=== PATIENT | female | born 1990 | race Native Hawaiian/Other Pacific Islander ===

== ENCOUNTER 2017-09-20 17:29 | Emergency (ER) | payer SELFPAY ==
[2017-09-20 18:22] LABS: HCG Qualitative,Urine Positive (Negative)
[2017-09-20 18:26] LABS: Bacteria,Urine 2+ /HPF (Negative); Bilirubin,Urine NEG (Negative); Blood,Urine NEG (Negative); Color,Urine Yellow (Yellow); Mucus,Urine FEW /HPF; Protein,Urine <15 mg/dL mg/dL (Negative); Urobilinogen,Urine < 2.0 mg/dL (<2.0)
--- NOTE | 2017-09-20 20:22 | Emergency Department Report ---
ED General Adult HPI - General Chief complaint: Abdominal Pain Stated complaint: ABD PAIN ON LEFT SIDE Time Seen by Provider: 09/20/17 20:22 Source: patient Mode of arrival: Ambulatory Limitations: No Limitations - History of Present Illness Initial comments: Patient is a 26-year-old female no significant past medical history who presents with abdominal pain on for 1 month. She says it is all pain is on the left side of her belly is an achy type of pain as a 3 out of 10. It doesn't radiate nothing makes it better or worse. Patient also states that she's had some morning sickness and nausea in the mornings. Patient denies having any trauma to the area her last menstrual period was in June. - Related Data Previous Rx's Medication Instructions Recorded Last Taken Type Acetaminophen 1,000 mg PO Q6H PRN #30 tablet 09/20/17 Unknown Rx Nitrofurantoin Monohyd/M-Cryst 100 mg PO BID #14 capsule 09/20/17 Unknown Rx [Macrobid 100 mg Capsule] Pnv No.118/Iron Fumarate/FA 1 each PO QDAY #60 tab.chew 09/20/17 Unknown Rx [ 19 Chewable] Allergies Allergy/AdvReac Type Severity Reaction Status Date / Time No Known Allergies Allergy Unverified 09/20/17 17:42 ED Review of Systems ROS: Stated complaint: ABD PAIN ON LEFT SIDE Other details as noted in HPI Constitutional: denies: chills, fever Eyes: denies: eye pain, eye discharge, vision change ENT: denies: ear pain, throat pain Respiratory: denies: cough, shortness of breath, wheezing Cardiovascular: denies: chest pain, palpitations Endocrine: no symptoms reported Gastrointestinal: abdominal pain. denies: nausea, diarrhea Genitourinary: denies: urgency, dysuria, discharge Musculoskeletal: denies: back pain, joint swelling, arthralgia Skin: denies: rash, lesions Neurological: denies: headache, weakness, paresthesias Psychiatric: denies: anxiety, depression Hematological/Lymphatic: denies: easy bleeding, easy bruising ED Past Medical Hx - Past Medical History Previous Medical History?: Yes Additional medical history: Vaginal delivery x 2 - Surgical History Past Surgical History?: No - Family History Family history: no significant - Social History Smoking Status: Never Smoker Substance Use Type: None - Medications Home Medications: Home Medications Medication Instructions Recorded Confirmed Last Taken Type Acetaminophen 1,000 mg PO Q6H PRN #30 tablet 09/20/17 Unknown Rx Nitrofurantoin Monohyd/M-Cryst 100 mg PO BID #14 capsule 09/20/17 Unknown Rx [Macrobid 100 mg Capsule] Pnv No.118/Iron Fumarate/FA 1 each PO QDAY #60 tab.chew 09/20/17 Unknown Rx [ 19 Chewable] ED Physical Exam - General Limitations: No Limitations General appearance: alert, in no apparent distress - Head Head exam: Present: atraumatic, normocephalic - Eye Eye exam: Present: normal appearance - ENT ENT exam: Present: mucous membranes moist - Neck Neck exam: Present: normal inspection - Respiratory Respiratory exam: Present: normal lung sounds bilaterally. Absent: respiratory distress - Cardiovascular Cardiovascular Exam: Present: regular rate, normal rhythm. Absent: systolic murmur, diastolic murmur, rubs, gallop - GI/Abdominal GI/Abdominal exam: Present: soft, normal bowel sounds - Extremities Exam Extremities exam: Present: normal inspection - Back Exam Back exam: Present: normal inspection - Neurological Exam Neurological exam: Present: alert, oriented X3 - Psychiatric Psychiatric exam: Present: normal affect, normal mood - Skin Skin exam: Present: warm, dry, intact, normal color. Absent: rash ED Course Vital Signs 09/20/17 17:42 Temperature 97.7 F Pulse Rate 99 H Respiratory 18 Rate Blood Pressure 117/63 O2 Sat by Pulse 99 Oximetry - Reevaluation(s) Reevaluation #1: 09/20/17 20:41 Pt states that she will f/u with her obgyn appointment on September 27. ED Medical Decision Making - Lab Data Lab Results 09/20/17 Range/Units 18:04 Urine Color Yellow (Yellow) Urine Turbidity Clear (Clear) Urine pH 6.0 (5.0-7.0) Ur Specific Marceline 1.016 (1.003-1.030) Urine Protein <15 mg/dl (Negative) mg/dL Urine Glucose (UA) Neg (Negative) mg/dL Urine Ketones Neg (Negative) mg/dL Urine Blood Neg (Negative) Urine Nitrite Neg (Negative) Ur Reducing Substances Not Reportable Urine Bilirubin Neg (Negative) Urine Ictotest Not Reportable Urine Urobilinogen < 2.0 (<2.0) mg/dL Ur Leukocyte Esterase Lg (Negative) Urine WBC (Auto) 6.0 (0.0-6.0) /HPF Urine RBC (Auto) 3.0 (0.0-6.0) /HPF U Epithel Cells (Auto) 17.0 H (0-13.0) /HPF Urine Bacteria (Auto) 2+ (Negative) /HPF Urine Mucus Few /HPF Urine Yeast (Budding) Few /HPF Urine HCG, Qual Positive A (Negative) - Medical Decision Making Cdx: Abdominal pain 2/2 pregnacy ddx: UTI, ectopic I will get urinalysis and ED point of care ultrasound. ED point of care ultrasound shows: Intrauterine with gestation around 8-9 weeks. I will send patient home with a prescription of macrobid. Discussed findings with patient and patient agrees with plan additional verbal discharge instructions were given. Critical care attestation.: If time is entered above; I have spent that time in minutes in the direct care of this critically ill patient, excluding procedure time. ED Disposition Clinical Impression: Abdominal pain affecting UTI (urinary tract infection) Qualifiers: Urinary tract infection type: acute cystitis Hematuria presence: without hematuria Qualified Code(s): N30.00 - Acute cystitis without hematuria Qualifiers: Weeks of gestation: 8 weeks Qualified Code(s): Z3A.08 - 8 weeks gestation of Disposition: DC-01 TO HOME OR SELFCARE Is pt being admited?: No Does the pt Need Aspirin: No Condition: Stable Instructions: Abdominal Pain (ED), (ED), Morning Sickness (ED) Prescriptions: Acetaminophen 1,000 mg PO Q6H PRN #30 tablet PRN Reason: Pain, Moderate (4-6) Nitrofurantoin Monohyd/M-Cryst [Macrobid 100 mg Capsule] 100 mg PO BID #14 capsule Pnv No.118/Iron Fumarate/FA [ 19 Chewable] 1 each PO QDAY #60 tab.chew Referrals: NOLVIA SANCHEZ MD [Staff Physician] - 3-5 Days
[2017-09-20] MEDS ORDERED: TYLENOL PO ONE (20:30)
[2017-09-20 20:49] VITALS: BP 136/72
== END 2017-09-20 20:47 | disposition home or self-care (01) ==
LOC: ED 17:29
DX: O23.41 Unspecified infection of urinary tract in pregnancy, first trimester (principal); Z3A.08 8 weeks gestation of pregnancy
CPT/HCPCS: 81001; 81025; 99283

== ENCOUNTER 2018-03-22 15:26 | Outpatient (CLI) | payer MEDICAID ==
--- NOTE | 2018-03-22 20:59 | Ultrasound Report ---
FINAL REPORT EXAM: US OB LIMITED HISTORY: Fell at laundry mat TECHNIQUE: Real-time sonography was performed of the gravid uterus to evaluate the placenta and imag es are submitted for interpretation. PRIORS: None. FINDINGS: There is a normal-appearing fetus in the uterus in a cephalic presentation. The placenta is posterior and the os is clear. The placenta appears normal without evidence of abrupt ion. The heart is beating at a rate of 143 beats per minute. IMPRESSION: Normal placenta without evidence of placental abruption
--- NOTE | 2018-03-22 21:02 | Ultrasound Report ---
FINAL REPORT EXAM: US OB BPP WO NON-STRESS HISTORY: well being TECHNIQUE: Real-time sonography was performed of the gravid uterus for biophysical profile and image s are submitted for interpretation. PRIORS: None. FINDINGS: Biophysical profile: Breathin Movement: 2 Tone: 2 Fluid volume: 2 IMPRESSION: Normal biophysical profile, 10/31
[2018-03-22 22:23] VITALS: BP 95/57
--- NOTE | 2018-03-23 03:55 | Event Note ---
Date: 03/22/18 Triage Note 03/22/18 27 year old female presents to L&D triage at 36 weeks, 5 days gestation after falling at laundry mat. Patient states she slipped and fell on her left side; states she did not hit her belly or her head. Patient denies pain and states she can move both arms and legs well. She denies bruising or lacerations. She denies contractions, abdominal pain, back pain, vaginal bleeding, or leaking of fluid. Patient reports she feels active movement. Patient is well appearing, alert, oriented, NAD. Abdomen soft, nontender. No regular contractions. No vaginal bleeding or leaking of fluid noted. Category 1 heart rate tracing. BPP 8/8. No signs of placental abruption noted on US. Patient was monitored for 6 hours and no signs of active labor noted. No decels noted. Discharged patient home with labor precautions and instructions to perform daily movement counting. Follow up as scheduled next week with OB-BUSINESS INTEGRATION ANALYST.
== END 2018-03-22 23:34 | disposition home or self-care (01) ==
LOC: TRG 15:26
PROVIDERS: ATTEND Obstetrics & Gynecology
DX: O47.03 False labor before 37 completed weeks of gestation, third trimester (principal); Z3A.36 36 weeks gestation of pregnancy
CPT/HCPCS: 59025; 76815; 76819

== ENCOUNTER 2018-04-14 11:16 | Inpatient (IN) | payer MEDICAID ==
[2018-04-14] MEDS ORDERED: XYLOCAINE 2% INFILTRATI ONE (12:09)
[2018-04-14] MEDS ORDERED: BRETHINE SUB-Q PRN (12:09)
--- NOTE | 2018-04-14 12:34 | History and Physical Report ---
History of Present Illness Date of examination: 04/14/18 Date of admission: 04/14/2018 Chief complaint: Leaking of water from vagina since 08:00 this morning. History of present illness: 27 year old presents to L&D with complaint of leaking of water from vagina since 08:00 this AM. Patient states fluid is clear. Patient reports active movement. She denies vaginal bleeding. Patient has received care from [facility] OB-DIGITAL MEDIA REPRESENTATIVE [facility] and records are available. LMP 07/09/2017. EDC 04/15/2018. significant for the following: UTI (treated with Augmentin), vitamin D insufficiency (supplemented with Vitamin D). labs are as follows: O+, antibody screen negative, pap negative, rubella immune, RPR nonreactive, hepatitis B surface antigen negative, HIV negative, varicella immune, HSV 2 negative, hemoglobin electrophoresis AA, GC negative, CT negative, panorama low risk, GBS negative. Past History Past Medical History: no pertinent history Past Surgical History: no surgical history DIGITAL MEDIA REPRESENTATIVE History: denies: abnormal PAP smear, chlamydia, fibroids, gonorrhea, hepatitis B, hepatitis C, herpes, HIV, syphilis, trichomonas Family/Genetic History: none Social history: , lives with family, full code. denies: smoking, alcohol abuse, prescription drug abuse, IV drug use - Obstetrical History Expected Date of Delivery: 04/15/18 Actual Gestation: 39 Week(s) 6 Day(s) : 3 Para: 2 Hx # Term Pregnancies: 3 Number of Pregnancies: 0 Spontaneous Abortions: 0 Induced : 0 Number of Living Children: 2 Medications and Allergies Allergies Allergy/AdvReac Type Severity Reaction Status Date / Time No Known Allergies Allergy Unverified 09/20/17 17:42 Home Medications Medication Instructions Recorded Confirmed Last Taken Type Pnv No.118/Iron Fumarate/FA 1 each PO QDAY #60 tab.chew 09/20/17 04/14/18 1 Week Ago Rx [ 19 Chewable] ~04/07/18 Active Meds: Active Medications Ephedrine Sulfate (Ephedrine Sulfate) 10 mg IV Q2M PRN PRN Reason: Hypotension Fentanyl (Sublimaze) 100 mcg IV Q2H PRN PRN Reason: Labor Pain Lactated Ringer's (Lactated Ringers) 1,000 mls @ 125 mls/hr IV DIRECT GIUSEPPE Oxytocin/Sodium Chloride (Pitocin/Ns 20 Unit/1000ml Drip) 20 units in 1,000 mls @ 125 mls/hr IV DIRECT GIUSEPPE Oxytocin/Sodium Chloride (Pitocin/Ns 30 Unit/500ml) 30 units in 500 mls @ 0 mls/hr IV TITR GIUSEPPE; Protocol Lidocaine (Xylocaine 2%) 20 ml INFILTRATI ONCE ONE Stop: 04/14/18 12:10 Terbutaline Sulfate (Brethine) 0.25 mg SUB-Q ONCE PRN PRN Reason: Hyperstimulation/Hypertonicity Review of Systems All systems: negative (none except leaking of fluid from vagina and contractions) - Vital Signs Vital signs: Vital Signs Temp Resp 98.0 F 16 04/14/18 11:30 04/14/18 11:30 Temp Pulse Resp BP Pulse Ox 98.0 F 93 H 16 106/67 97 04/14/18 11:30 04/14/18 12:26 04/14/18 11:30 04/14/18 11:31 04/14/18 12:26 - Physical Exam Cardiovascular: Regular rate, Normal S1, Normal S2 Lungs: Positive: Clear to auscultation Abdomen: Positive: normal appearance, soft Genitourinary (Female): Positive: normal external genitalia, normal perenium. Negative: perineal/vulvar lesions Vagina: Positive: other (clear fluid, + nitrazine, + amniotic fluid seen leaking from vagina) Uterus: Positive: enlarged (size=dates) Anus/Rectum: Positive: normal perianal skin Extremities: Positive: normal. Negative: tenderness, edema - Obstetrical FHR: category 1 Uterine Contraction Monitor Mode: External Cervical Dilatation: 2.5 (SVE done by RN in triage upon patient's arrival) Cervical Effacement Percentage: 60 station: -3 Uterine Contraction Pattern: Regular Uterine Contraction Intensity: Mild Results All other labs normal. Assessment and Plan A: at 39 weeks, 6 days gestation. Spontaneous rupture of membranes. Labor. GBS negative. P: Admit. Continuous EFM. Epidural if desired. Pitocin augmentation of labor. Discussed with patient risks and benefits of Pitocin augmentation of labor. Patient consented to Pitocin augmentation of labor.
[2018-04-14] MEDS ORDERED: PITOCin/NS 30 UNIT/500ML 30 UNITS/500 ML BAG IV SCH (13:00)
[2018-04-14] MEDS ORDERED: PITOCin/NS 20 UNIT/1000ML DRIP 20 UNITS/1,000 ML BAG IV SCH (13:00)
[2018-04-14] MEDS: LACTATED RINGERS 1,000 ML IV SCH ×4 (15:00→22:09)
[2018-04-14 15:19] LABS: Hematocrit 41.4 % (30.3-42.9); Hemoglobin 13.9 gm/dl (10.1-14.3); Mean Corpuscular HGB Conc 34 % (30-34); Mean Corpuscular Volume 95 fl (79-97); Platelet Count 226 K/mm3 (140-440); Red Blood Count 4.34 M/mm3 (3.65-5.03)
--- NOTE | 2018-04-14 16:34 | Event Note ---
Date: 04/14/18 SVE /-2. Category 1 heart rate tracing. Patient requests IV pain medication.
[2018-04-14] MEDS: SUBLIMAZE IV PRN ×3 (16:40→21:10)
--- NOTE | 2018-04-14 22:13 | Anesthesia Consultation ---
Anesthesia Consult and Med Hx Date of service: 04/14/18 - Airway Anesthetic Teeth Evaluation: Good ROM Head & Neck: Adequate Mental/Hyoid Distance: Adequate Mallampati Class: Class II Intubation Access Assessment: Good - Pulmonary Exam CTA: Yes - Pre-Operative Health Status ASA Pre-Surgery Classification: ASA2 Proposed Anesthetic Plan: Epidural - Pulmonary Hx Smoking: No Hx Asthma: No Hx Respiratory Symptoms: No SOB: No COPD: No Hx Pneumonia: No Hx Sleep Apnea: No - Cardiovascular System Hx Hypertension: No Hx Coronary Artery Disease: No Hx Heart Attack/AMI: No Hx Angina: No Hx Percutaneous Transluminal Coronary Angioplasty (PTCA): No Hx Cardia Arrhythmia: No Hx Pacemaker: No Hx Internal Defibrillator: No Hx Valvular Heart Disease: No Hx Heart Murmur: No Hx Peripheral Vascular Disease: No - Central Nervous System Hx Neuromuscular Disorder: No Hx Seizures: No CVA: No Hx Back Pain: No Hx Psychiatric Problems: No - Gastrointestinal Hx Ulcer: No Hx Gastroesophageal Reflux Disease: No - Endocrine Hx Renal Disease: No Hx End Stage Renal Disease: No Hx Cirrhosis: No Hx Liver Disease: No Hx Insulin Dependent Diabetes: No Hx Non-Insulin Dependent Diabetes: No Hx Thyroid Disease: No Hx Hypothyroidism: No Hx Hyperthyroidism: No - Hematic Hx Anemia: No Hx Sickle Cell Disease: No - Other Systems Hx Alcohol Use: No Hx Substance Use: No Hx Cancer: No Hx Obesity: No
[2018-04-14] MEDS ORDERED: ZOFRAN IV PRN (22:16)
[2018-04-14] MEDS ORDERED: NUBAIN IV PRN (22:16)
[2018-04-14] MEDS ORDERED: BENADRYL IV PRN (22:16)
[2018-04-14] MEDS ORDERED: NARCAN 2 MG/2 ML IV PRN (22:16)
[2018-04-14] MEDS ORDERED: fentaNYL-BUPIV 2 MCG/ML-0.125% 200 MCG/100 ML BAG EPIDURAL SCH (22:24)
[2018-04-15] MEDS ORDERED: LANSINOH TP PRN
[2018-04-15] MEDS ORDERED: BENADRYL PO PRN
[2018-04-15] MEDS ORDERED: MILK OF MAGNESIA PO PRN
[2018-04-15] MEDS ORDERED: NORCO 5/325 PO PRN
[2018-04-15] MEDS ORDERED: SODIUM CHLORIDE FLUSH SYRINGE 10 ML IV NR
[2018-04-15] MEDS ORDERED: TUCKS PAD TP PRN
--- NOTE | 2018-04-15 00:09 | Procedure Note ---
OB Delivery Note - Delivery Date of Delivery: 04/15/18 Surgeon: FISH LICONA Estimated blood loss: 200cc - Vaginal Delivery presentation: vertex Delivery position: OA Delivery augmentation: pitocin Delivery monitor: external FHT, external uterine Route of delivery: Delivery placenta: spontaneous Delivery cord: 3 umbilical vessels, other (short cord) Episiotomy: none Delivery laceration: none Anesthesia: epidural Delivery comments: Spontaneous vaginal delivery of liveborn female infant weighing 6 lb. 12 oz. at 23:40 over intact perineum with apgars of 8/9. Baby placed immediately on mother's abdomen after delivery; spontaneous cry and respirations. Baby bulb suctioned, dried, and stimulated. Short cord noted. 3 vessel cord double clamped and cut after cessation of pulsation. Spontaneous delivery of intact placenta and membranes by solo mechanism at 23:48. EBL 200 ml. Pitocin to IV fluids after delivery of placenta. Fundus firm and midline. Vaginal sweep negative. No lacerations noted. Sponge count correct. Mother and baby stable in birthing room.
[2018-04-15] MEDS: IBUPROFEN PO SCH ×3 (01:44→17:40)
[2018-04-15] MEDS: COLACE PO SCH ×2 (10:05→22:24)
--- NOTE | 2018-04-15 12:01 | Progress Note ---
Assessment and Plan - Patient Problems (1) Status post normal vaginal delivery Current Visit: Yes Status: Acute Plan to address problem: PPD 1 - stable Continue routine orders Discharge to home 04/16/18 Follow-up at [facility] INFORMATION SYSTEMS MANAGER in 6 weeks for exam Subjective - Subjective Date of service: 04/15/18 Principal diagnosis: PPD #1; s/p Patient reports: appetite normal, voiding normally, pain well controlled, ambulating normally, no dizzy ambulation : doing well, other (breast and bottle feeding) Objective - Vital Signs Latest vital signs: Vital Signs Temp Pulse Resp BP BP Pulse Ox 04/15/18 07:46 97.8 F 70 18 99/56 04/15/18 05:26 98.0 F 78 18 91/55 98 04/15/18 01:30 98.1 F 83 18 90/51 97 04/15/18 00:37 91 H 111/59 04/15/18 00:07 115 H 107/56 04/14/18 23:39 106 H 82 L 04/14/18 23:37 136 H 133/81 04/14/18 23:34 117 H 100 04/14/18 23:33 40 L 88 04/14/18 23:28 100 H 100 04/14/18 23:23 89 100 04/14/18 23:18 96 H 100 04/14/18 23:13 85 100 04/14/18 23:06 100 H 100 04/14/18 23:01 108 H 0 L 04/14/18 23:00 114 H 0 L 04/14/18 22:55 92 H 100 04/14/18 22:50 91 H 100 04/14/18 22:45 84 100 04/14/18 22:41 90 100 04/14/18 22:35 76 100 04/14/18 22:30 86 100 04/14/18 22:26 81 102/58 04/14/18 22:25 87 98 04/14/18 22:24 94 H 96/55 04/14/18 22:22 90 105/56 04/14/18 22:20 90 98 04/14/18 22:15 97 H 97 04/14/18 22:13 93 H 101/51 04/14/18 22:10 102 H 98 04/14/18 22:08 107 H 96/52 04/14/18 22:06 109 H 110/56 04/14/18 22:05 113 H 97 04/14/18 22:04 109 H 117/56 04/14/18 22:02 102 H 119/63 04/14/18 22:00 108 H 114/62 99 04/14/18 21:58 94 H 119/58 04/14/18 21:56 117 H 127/64 04/14/18 21:55 103 H 98 04/14/18 21:54 109 H 124/59 04/14/18 21:52 114 H 115/65 04/14/18 21:50 112 H 97 04/14/18 21:40 18 04/14/18 21:28 98 H 120/69 04/14/18 21:10 20 04/14/18 20:28 97.5 F L 102 H 20 95/55 04/14/18 20:27 102 H 94/55 04/14/18 19:06 20 04/14/18 17:59 98.2 F 18 04/14/18 15:18 98 H 109/69 04/14/18 15:13 98.3 F 18 04/14/18 14:46 95 H 99 04/14/18 14:41 90 99 04/14/18 14:36 95 H 99 04/14/18 14:31 87 99 04/14/18 14:26 83 98 04/14/18 14:21 84 99 04/14/18 14:16 81 99 04/14/18 14:11 87 98 04/14/18 14:06 97 H 99 04/14/18 14:01 87 99 04/14/18 13:56 98 H 97 04/14/18 13:51 86 99 04/14/18 13:46 95 H 98 04/14/18 13:41 95 H 98 04/14/18 13:36 94 H 98 04/14/18 13:31 93 H 98 04/14/18 13:26 99 H 98 04/14/18 13:21 81 97 04/14/18 13:16 89 97 04/14/18 13:11 89 97 04/14/18 13:06 94 H 98 04/14/18 13:01 98 H 98 04/14/18 12:56 91 H 97 04/14/18 12:51 92 H 97 04/14/18 12:46 97 H 97 04/14/18 12:41 93 H 97 04/14/18 12:36 94 H 96 04/14/18 12:31 86 98 04/14/18 12:26 93 H 97 04/14/18 12:21 99 H 97 04/14/18 12:16 96 H 98 04/14/18 12:11 99 H 99 04/14/18 12:06 102 H 97 04/14/18 12:01 101 H 97 Intake and Output 04/14/18 04/15/18 04/15/18 23:59 07:59 15:59 Intake Total 894.549 720 120 Output Total 900 Balance 894.549 -180 120 Intake: IV 894.549 Lactated Ringers 1,000 ml 893.749 @ 125 mls/hr IV DIRECT GIUSEPPE Rx#:[id number] PITOCin/NS 30 UNIT/500ML 0.8 30 units In 500 ml @ Per Protocol IV TITR GIUSEPPE Rx#: [id number] Oral 360 120 Intake, Free Water 360 Output: Urine 900 Void 900 Other: Total, Intake Amount 360 120 Total, Output Amount 900 Estimated Blood Loss 200 - Exam Cardiovascular: Present: Regular rate Lungs: Present: Clear to auscultation, Normal air movement Abdomen: Present: normal appearance Vulva: both: normal Uterus: Present: normal, firm, fundal height at umbilicus Extremities: Present: normal Comments: scant lochia
[2018-04-15 12:02] LABS: Hemoglobin 11.6 gm/dl (10.1-14.3)
--- NOTE | 2018-04-15 12:09 | Discharge Summary ---
Providers - Providers Date of Admission: 04/14/18 15:06 Date of discharge: 04/16/18 Attending physician: MARLYN SONI MD Primary care physician: MARLYN SONI MD Hospitalization Reason for admission: active labor, IUP at term Delivery: Episiotomy: none Laceration: none Other procedures: none complications: none Discharge diagnosis: IUP at term delivered [place] baby: female Hospital course: Uncomplicated Condition at discharge: Stable Disposition: AR-01 TO HOME OR SELFCARE - Discharge Diagnoses (1) Status post normal vaginal delivery Status: Acute Plan - Provider Discharge Summary Activity: routine, no sex for 6 weeks, no heavy lifting 4 weeks, no strenuous exercise Diet: routine Additional instructions: [] Smoking cessation referral if applicable(refer to patient education folder for contact #) [] Refer to [facility] Booklet Call your doctor immediately for: * Fever > 100.5 * Heavy vaginal bleeding ( >1 pad per hour) * Severe persistent headache * Shortness of breath * Reddened, hot, painful area to leg or breast * Drainage or odor from incision. * Keep incision clean and dry at all times and follow doctor's instructions regarding bathing/showering - Follow up plan Follow up: MARLYN SONI MD [Primary Care Provider] - 6 Weeks (Follow-up at [facility] OCEANOLOGY TEACHER in 6 weeks for exam and ParaGard IUD insertion)
[2018-04-15 12:29] LABS: Hematocrit 33.3 % (30.3-42.9)
[2018-04-16] MEDS: IBUPROFEN PO SCH ×2 (00:23→06:34)
[2018-04-16] MEDS ORDERED: BOOSTRIX IM ONE (06:30)
[2018-04-16 10:42] VITALS: BP 106/48
== END 2018-04-16 11:00 | disposition home or self-care (01) | DRG 775 ==
LOC: TRG 11:16 → LD 15:06 → OB 04-15 01:05
PROVIDERS: ADMIT Obstetrics & Gynecology; ATTEND Obstetrics & Gynecology
PROC: 10E0XZZ Delivery of Products of Conception, External Approach (ICD-10-PCS; principal; 2018-04-15)
PROC: 3E0R3BZ Introduction of Anesthetic Agent into Spinal Canal, Percutaneous Approach (ICD-10-PCS; 2018-04-15)
PROC: 00HU33Z Insertion of Infusion Device into Spinal Canal, Percutaneous Approach (ICD-10-PCS; 2018-04-15)
DX: O80 Encounter for full-term uncomplicated delivery (principal); Z3A.39 39 weeks gestation of pregnancy; Z37.0 Single live birth
CPT/HCPCS: 36415; 85014; 85018; 85027; 86592; 86850; 86900; 86901; 90471; 90715; G0378; J2590; J3010; J7120

== ENCOUNTER 2019-10-22 16:49 | Emergency (ER) | payer SELFPAY ==
--- NOTE | 2019-10-22 17:36 | Event Note ---
ED Screening Note ED Screening Note: 5 days ago chills, diarrhea, cough, headache no fever no vomiting no SOB PMHx none no allergies to meds no sick contacts no recent travel LNMP: currently O2 sat is 95 on RA HR is 128bpm This initial assessment/diagnostic orders/clinical plan/treatment(s) is/are subject to change based on patients health status, clinical progression and re- assessment by fellow clinical providers in the ED. Further treatment and workup at subsequent clinical providers discretion. Patient/guardian urged not to elope from the ED as their condition may be serious if not clinically assessed and managed. Initial orders include: labs, CXR
[2019-10-22 18:03] LABS: Basophils % (Auto) 0.2 % (0.0-1.8); Eosinophils % (Auto) 0.2 % (0.0-4.3); Hemoglobin 12.5 gm/dl (10.1-14.3); Lymphocytes # (Auto) 1.1 K/mm3 (1.2-5.4); Lymphocytes % (Auto) 18.6 % (13.4-35.0); Mean Corpuscular HGB Conc 33 % (30-34); Mean Corpuscular Volume 88 fl (79-97); Monocytes # (Auto) 0.2 K/mm3 (0.0-0.8); Monocytes % (Auto) 3.4 % (0.0-7.3); Platelet Count 201 K/mm3 (140-440); Red Blood Count 4.32 M/mm3 (3.65-5.03); Red Cell Distribution Width 14.9 % (13.2-15.2)
[2019-10-22 18:17] LABS: Alanine Aminotransferase 41 units/L (7-56); Albumin 3.8 g/dL (3.9-5); Blood Urea Nitrogen 3 mg/dL (7-17); Calcium 8.6 mg/dL (8.4-10.2); Hemolysis Index 1
[2019-10-22 18:33] LABS: BUN/Creatinine Ratio 6
--- NOTE | 2019-10-22 19:47 | XRay Report ---
CHEST 2 VIEWS INDICATION: Off. Fever.. COMPARISON: None. FINDINGS: Support devices: None. Heart: Within normal limits. Lungs/Pleura: Lung volumes are diminished. Patchy opacity at the mid/lower zones left greater than ri ght. No significant pleural effusion. IMPRESSION: Bibasilar pneumonia. Signer Name: Dwight Garibay MD Signed: 10/22/2019 7:43 PM Workstation Name: [id number]
[2019-10-22] MEDS ORDERED: cefTRIAXone/NS 2 GM/100 ML 2 GM/100 ML BAG IV ONE (19:54)
[2019-10-22] MEDS ORDERED: SODIUM CHLORIDE 0.9% 1000 ML 1,000 ML IV ONE (19:54)
[2019-10-22] MEDS ORDERED: traMADol 50 MG TAB PO ONE (19:54)
[2019-10-22] MEDS ORDERED: AZITHROMYCIN 250 MG TAB PO ONE (19:54)
[2019-10-22] MEDS ORDERED: dexAMETHasone 4 MG/ML VIAL IV ONE (21:12)
[2019-10-22 22:12] VITALS: BP 121/67
--- NOTE | 2019-10-22 22:18 | Emergency Department Report ---
- General Chief Complaint: Upper Respiratory Infection Stated Complaint: CHILLS/HEADACHE/DIARRHEA/ Time Seen by Provider: 10/22/19 17:34 Source: patient Mode of arrival: Ambulatory Limitations: No Limitations - History of Present Illness Initial Comments: pt is a 28 yo female who presents to the ED with c/o URI symptoms that began 5 days ago she has associated chills, diarrhea, cough, headache no fever no vomiting no SOB no CP no abd pain PMHx none no allergies to meds no sick contacts no recent travel LNMP: currently on cycle - Related Data Previous Rx's Medication Instructions Recorded Last Taken Type Pnv No.118/Iron Fumarate/FA 1 each PO QDAY #60 tab.chew 09/20/17 1 Week Ago Rx [ 19 Chewable] ~04/07/18 Albuterol Sulfate [Proventil Hfa] 6.7 gm IH TID PRN #1 hfa.aer.ad 10/22/19 Unknown Rx Azithromycin [Zithromax TAB] 250 mg PO QDAY 4 Days #4 tablet 10/22/19 Unknown Rx Allergies Allergy/AdvReac Type Severity Reaction Status Date / Time No Known Allergies Allergy Unverified 09/20/17 17:42 ED Review of Systems ROS: Stated complaint: CHILLS/HEADACHE/DIARRHEA/ Other details as noted in HPI Comment: All other systems reviewed and negative ED Past Medical Hx - Past Medical History Previous Medical History?: No Hx Hypertension: No Hx Heart Attack/AMI: No Hx Congestive Heart Failure: No Hx Diabetes: No Hx Deep Vein Thrombosis: No Hx Liver Disease: No Hx Renal Disease: No Hx Sickle Cell Disease: No Hx Seizures: No Hx Asthma: No Hx COPD: No Hx HIV: No Additional medical history: Vaginal delivery x 2 - Surgical History Past Surgical History?: No Hx Pacemaker: No Hx Internal Defibrillator: No - Social History Smoking Status: Never Smoker Substance Use Type: None - Medications Home Medications: Home Medications Medication Instructions Recorded Confirmed Last Taken Type Pnv No.118/Iron Fumarate/FA 1 each PO QDAY #60 tab.chew 09/20/17 04/14/18 1 Week Ago Rx [ 19 Chewable] ~04/07/18 Albuterol Sulfate [Proventil Hfa] 6.7 gm IH TID PRN #1 hfa.aer.ad 10/22/19 Unknown Rx Azithromycin [Zithromax TAB] 250 mg PO QDAY 4 Days #4 tablet 10/22/19 Unknown Rx ED Physical Exam - General Limitations: No Limitations General appearance: alert, in no apparent distress - Head Head exam: Present: atraumatic, normocephalic - Eye Eye exam: Present: normal appearance - ENT ENT exam: Present: mucous membranes moist - Respiratory Respiratory exam: Present: normal lung sounds bilaterally. Absent: respiratory distress, wheezes, rales, rhonchi, stridor, chest wall tenderness, accessory muscle use, decreased breath sounds, prolonged expiratory - Cardiovascular Cardiovascular Exam: Present: regular rate, normal rhythm, normal heart sounds. Absent: systolic murmur, diastolic murmur, rubs, gallop - Neurological Exam Neurological exam: Present: alert, oriented X3 - Psychiatric Psychiatric exam: Present: normal affect, normal mood - Skin Skin exam: Present: warm, dry, intact ED Course Vital Signs 10/22/19 10/22/19 10/22/19 17:34 20:15 20:31 Temperature 99.6 F Pulse Rate 126 H 130 H 127 H Respiratory 18 22 22 Rate Blood Pressure 116/74 106/57 106/67 Blood Pressure [Right] O2 Sat by Pulse 94 95 96 Oximetry 10/22/19 10/22/19 10/22/19 20:45 21:01 21:15 Temperature Pulse Rate 121 H 122 H 129 H Respiratory 17 26 H 25 H Rate Blood Pressure 88/49 88/49 88/49 Blood Pressure [Right] O2 Sat by Pulse 97 98 95 Oximetry 10/22/19 10/22/19 10/22/19 21:43 21:45 22:00 Temperature Pulse Rate 118 H Respiratory 13 30 H Rate Blood Pressure 88/49 88/49 104/66 Blood Pressure [Right] O2 Sat by Pulse 93 95 96 Oximetry 10/22/19 22:11 Temperature 99.5 F Pulse Rate 117 H Respiratory 18 Rate Blood Pressure Blood Pressure 121/67 [Right] O2 Sat by Pulse 97 Oximetry ED Medical Decision Making - Lab Data Result diagrams: 10/22/19 17:43 10/22/19 17:43 Lab Results 10/22/19 10/22/19 10/22/19 Range/Units 17:43 17:43 17:43 WBC 5.7 (4.5-11.0) K/mm3 RBC 4.32 (3.65-5.03) M/mm3 Hgb 12.5 (10.1-14.3) gm/dl Hct 38.0 (30.3-42.9) % MCV 88 (79-97) fl MCH 29 (28-32) pg MCHC 33 (30-34) % RDW 14.9 (13.2-15.2) % Plt Count 201 (140-440) K/mm3 Lymph % (Auto) 18.6 (13.4-35.0) % [place]ardo % (Auto) 3.4 (0.0-7.3) % Eos % (Auto) 0.2 (0.0-4.3) % Baso % (Auto) 0.2 (0.0-1.8) % Lymph # 1.1 L (1.2-5.4) K/mm3 F[place]ardo # 0.2 (0.0-0.8) K/mm3 Eos # 0.0 (0.0-0.4) K/mm3 Baso # 0.0 (0.0-0.1) K/mm3 Seg Neutrophils % 77.6 H (40.0-70.0) % Seg Neutrophils # 4.4 (1.8-7.7) K/mm3 Sodium 137 (137-145) mmol/L Potassium 4.2 (3.6-5.0) mmol/L Chloride 101.6 (98-107) mmol/L Carbon Dioxide 24 (22-30) mmol/L Anion Gap 16 mmol/L BUN 3 L (7-17) mg/dL Creatinine 0.5 L (0.7-1.2) mg/dL Estimated GFR > 60 ml/min BUN/Creatinine Ratio 6 % Glucose 110 H (65-100) mg/dL Calcium 8.6 (8.4-10.2) mg/dL Magnesium 2.30 (1.7-2.3) mg/dL Total Bilirubin 0.20 (0.1-1.2) mg/dL AST 43 H (5-40) units/L ALT 41 (7-56) units/L Alkaline Phosphatase 117 (35-129) units/L Total Creatine Kinase 35 (30-135) units/L Total Protein 8.1 (6.3-8.2) g/dL Albumin 3.8 L (3.9-5) g/dL Albumin/Globulin Ratio 0.9 % TSH 1.090 (0.270-4.200) mlU/mL HCG, Qual (Negative) 10/22/19 Range/Units 17:43 WBC (4.5-11.0) K/mm3 RBC (3.65-5.03) M/mm3 Hgb (10.1-14.3) gm/dl Hct (30.3-42.9) % MCV (79-97) fl MCH (28-32) pg MCHC (30-34) % RDW (13.2-15.2) % Plt Count (140-440) K/mm3 Lymph % (Auto) (13.4-35.0) % F[place]ardo % (Auto) (0.0-7.3) % Eos % (Auto) (0.0-4.3) % Baso % (Auto) (0.0-1.8) % Lymph # (1.2-5.4) K/mm3 F[place]ardo # (0.0-0.8) K/mm3 Eos # (0.0-0.4) K/mm3 Baso # (0.0-0.1) K/mm3 Seg Neutrophils % (40.0-70.0) % Seg Neutrophils # (1.8-7.7) K/mm3 Sodium (137-145) mmol/L Potassium (3.6-5.0) mmol/L Chloride (98-107) mmol/L Carbon Dioxide (22-30) mmol/L Anion Gap mmol/L BUN (7-17) mg/dL Creatinine (0.7-1.2) mg/dL Estimated GFR ml/min BUN/Creatinine Ratio % Glucose (65-100) mg/dL Calcium (8.4-10.2) mg/dL Magnesium (1.7-2.3) mg/dL Total Bilirubin (0.1-1.2) mg/dL AST (5-40) units/L ALT (7-56) units/L Alkaline Phosphatase (35-129) units/L Total Creatine Kinase (30-135) units/L Total Protein (6.3-8.2) g/dL Albumin (3.9-5) g/dL Albumin/Globulin Ratio % TSH (0.270-4.200) mlU/mL HCG, Qual Negative (Negative) Vital Signs 10/22/19 10/22/19 10/22/19 17:34 20:15 20:31 Temperature 99.6 F Pulse Rate 126 H 130 H 127 H Respiratory 18 22 22 Rate Blood Pressure 116/74 106/57 106/67 Blood Pressure [Right] O2 Sat by Pulse 94 95 96 Oximetry 10/22/19 10/22/19 10/22/19 20:45 21:01 21:15 Temperature Pulse Rate 121 H 122 H 129 H Respiratory 17 26 H 25 H Rate Blood Pressure 88/49 88/49 88/49 Blood Pressure [Right] O2 Sat by Pulse 97 98 95 Oximetry 10/22/19 10/22/19 10/22/19 21:43 21:45 22:00 Temperature Pulse Rate 118 H Respiratory 13 30 H Rate Blood Pressure 88/49 88/49 104/66 Blood Pressure [Right] O2 Sat by Pulse 93 95 96 Oximetry 10/22/19 22:11 Temperature 99.5 F Pulse Rate 117 H Respiratory 18 Rate Blood Pressure Blood Pressure 121/67 [Right] O2 Sat by Pulse 97 Oximetry - Radiology Data Radiology results: report reviewed, image reviewed CHEST 2 VIEWS INDICATION: Off. Fever.. COMPARISON: None. FINDINGS: Support devices: None. Heart: Within normal limits. Lungs/Pleura: Lung volumes are diminished. Patchy opacity at the mid/lower zones left greater than right. No significant pleural effusion. IMPRESSION: Bibasilar pneumonia. Signer Name: Dwight Garibay MD Signed: 10/22/2019 7:43 PM Workstation Name: [id number] Transcribed By: ES Dictated By: Dwight Garibay MD Electronically Authenticated By: Dwight Garibay MD Signed Date/Time: 10/22/191942 DD/ 42 TD/TT: - Medical Decision Making pt is a 28 yo female who presents to the ED with c/o URI symptoms that began 5 days ago she has associated chills, diarrhea, cough, headache no fever no vomiting no SOB no CP no abd pain PMHx none no allergies to meds no sick contacts no recent travel LNMP: currently on cycle Initial vitals with mild low-grade temperature and tachycardia. No abnormality on physical examination as documented in chart. Chest x-ray shows Bibasilar pneumonia. Labs are stable. Patient given IV fluids, dexamethasone, ceftriaxone, azithromycin, tramadol. Patient symptoms improved and she was feeling better. Patient ambulated in the emergency department for 2 minutes and maintained oxygen saturations of 95% or greater on room air. She still continues to have some mild tachycardia but she is not hypoxic. Discussed case with Dr. Roldan, ER attending who states that patient is stable for discharge. Patient is presenting with the symptoms during a COVID-19 pandemic surge, she does have bibasilar pneumonia on her x-ray, discussed findings with patient and that COVID-19 pneumonia is a significant possibility, advised patient to get outpatient COVID-19 testing, discussed very strict return precautions with patient. Patient does not meet hospital criteria for admission or for COVID-19 testing. pt given prescription for azithromycin and albuterol inhaler. Advised patient Please take medication as prescribed. Please increase your fluid intake over the next several days. May take Tylenol as needed for fever or body aches. May take vram-oii-ongyrru cold symptom relief medication such as Mucinex or TheraFlu. Follow-up with a primary care doctor for reexamination in the next 2-3 days. Return to emergency room immediately for any new or worsening symptoms including but not limited to difficulty breathing, shortness of breath, severe chest pain, unable to tolerate by mouth intake, etc. Please self quarantine for 2 weeks from the onset of your symptoms. Please do not go out in public. If you are around others at home please wear a mask. If you need to cough or sneeze please do so in a napkin and immediately throw it away and immediately wash your hands. Wash your hands frequently. Wipe everything down. Recommend for you to get COVID-19 testing, may have this done at primary care doctor, health department, [facility] thr testing centers. Critical care attestation.: If time is entered above; I have spent that time in minutes in the direct care o f this critically ill patient, excluding procedure time. ED Disposition Clinical Impression: Viral syndrome Upper respiratory infection Qualifiers: URI type: unspecified URI Qualified Code(s): J06.9 - Acute upper respiratory infection, unspecified Disposition: DC- TO HOME OR SELFCARE Is pt being admited?: No Does the pt Need Aspirin: No Condition: Stable Instructions: COVID-19, Viral Syndrome (ED) Additional Instructions: Please take medication as prescribed. Please increase your fluid intake over the next several days. May take Tylenol as needed for fever or body aches. May take pubu-keu-miqgcql cold symptom relief medication such as Mucinex or TheraFlu. Follow-up with a primary care doctor for reexamination in the next 2- 3 days. Return to emergency room immediately for any new or worsening symptoms including but not limited to difficulty breathing, shortness of breath, severe chest pain, unable to tolerate by mouth intake, etc. Please self quarantine for 2 weeks from the onset of your symptoms. Please do not go out in public. If you are around others at home please wear a mask. If you need to cough or sneeze please do so in a napkin and immediately throw it away and immediately wash your hands. Wash your hands frequently. Wipe everything down. Recommend for you to get COVID-19 testing, may have this done at primary care doctor, health department, [facility] drive thru testing centers. Prescriptions: Albuterol Sulfate [Proventil Hfa] 6.7 gm IH TID PRN #1 hfa.aer.ad PRN Reason: Shortness Of Breath Azithromycin [Zithromax TAB] 250 mg PO QDAY 4 Days #4 tablet Referrals: ELIA MALLORY MD [Staff Physician] - 2-3 Days [facility] [Provider Group] - 2-3 Days [facility] [Outside] - 2-3 Days Time of Disposition: 22:16 Print Language: ROMANIAN
== END 2019-10-22 22:30 | disposition home or self-care (01) ==
LOC: ED 16:49
DX: J06.9 Acute upper respiratory infection, unspecified (principal); B34.9 Viral infection, unspecified; Z79.2 Long term (current) use of antibiotics; Z79.899 Other long term (current) drug therapy
CPT/HCPCS: 36415; 71046; 80053; 82550; 83735; 84443; 84703; 85025; 96365; 96375; 99284; J0696; J1100; J7030

== ENCOUNTER 2021-05-28 05:51 | Emergency (ER) | payer SELFPAY ==
[2021-05-28 06:37] VITALS: BP 132/66
--- NOTE | 2021-05-28 06:56 | Emergency Department Report ---
ED Chest Pain HPI - General Chief Complaint: Chest Pain Stated Complaint: LEFT SIDE BACK PAIN/CHEST BURNING Time Seen by Provider: 05/28/21 06:38 Source: patient Mode of arrival: Ambulatory Limitations: No Limitations - History of Present Illness Initial Comments: Patient comes in because of chest pain. Since February she has had intermittent episodes of chest pain. It is substernally located and radiates into the mid back area. She states that this would occasionally happen starting in February. Last week, it happened once. This week, it is already happened 2 different times. When the pain hits, it last for hours. She does report the pain is worse when she is resting and better when she is upright and moving. Again, the pain is substernally located radiating into the back. It is described as sharp. She has no nausea or vomiting associated with this. There is no shortness of breath. There is no history of recent travel or trauma. There is no antecedent travel or trauma. Patient denies cough or congestion. She has not taken a nything for pain as of yet. Severity scale (0 -10): 8 - Related Data Previous Rx's Medication Instructions Recorded Last Taken Type Pnv No.118/Iron Fumarate/FA 1 each PO QDAY #60 tab.chew 09/20/17 1 Week Ago Rx [ 19 Chewable] ~04/07/18 Albuterol Sulfate [Proventil Hfa] 6.7 gm IH TID PRN #1 hfa.aer.ad 10/22/19 Unknown Rx Ibuprofen [Motrin] 600 mg PO Q8H PRN #20 tablet 05/28/21 Unknown Rx Allergies Allergy/AdvReac Type Severity Reaction Status Date / Time No Known Allergies Allergy Unverified 09/20/17 17:42 Heart Score - HEART Score History: Slightly suspicious EKG: Normal Age: < 45 Risk factors: No known risk factors Troponin: < normal limit (Not done) HEART Score: 0 - EKG Read Time Time EKG Completed: 06:44 EKG Read Time: 06:46 ED Review of Systems ROS: Stated complaint: LEFT SIDE BACK PAIN/CHEST BURNING Other details as noted in HPI Comment: All other systems reviewed and negative Constitutional: denies: fever Eyes: denies: vision change ENT: denies: throat pain Respiratory: denies: cough Cardiovascular: as per HPI Endocrine: denies: unexplained weight loss Gastrointestinal: denies: abdominal pain Genitourinary: denies: urgency Musculoskeletal: as per HPI Skin: denies: rash Neurological: denies: headache Hematological/Lymphatic: denies: easy bruising ED Past Medical Hx - Past Medical History Previous Medical History?: Yes Hx Hypertension: No Hx Heart Attack/AMI: No Hx Congestive Heart Failure: No Hx Diabetes: No Hx Deep Vein Thrombosis: No Hx Liver Disease: No Hx Renal Disease: No Hx Sickle Cell Disease: No Hx Seizures: No Hx Asthma: No Hx COPD: No Hx HIV: No Additional medical history: Vaginal delivery x 2, - Surgical History Past Surgical History?: No Hx Pacemaker: No Hx Internal Defibrillator: No - Family History Family history: no significant - Social History Smoking Status: Never Smoker Substance Use Type: None - Medications Home Medications: Home Medications Medication Instructions Recorded Confirmed Last Taken Type Pnv No.118/Iron Fumarate/FA 1 each PO QDAY #60 tab.chew 09/20/17 04/14/18 1 Week Ago Rx [ 19 Chewable] ~04/07/18 Albuterol Sulfate [Proventil Hfa] 6.7 gm IH TID PRN #1 hfa.aer.ad 10/22/19 Unknown Rx Ibuprofen [Motrin] 600 mg PO Q8H PRN #20 tablet 05/28/21 Unknown Rx ED Physical Exam - General Limitations: No Limitations, Other (Pulse ox noted and normal) General appearance: alert, in no apparent distress - Head Head exam: Present: atraumatic, normocephalic - Eye Eye exam: Present: normal appearance, PERRL, EOMI. Absent: scleral icterus - ENT ENT exam: Present: normal external ear exam - Neck Neck exam: Present: normal inspection. Absent: meningismus - Respiratory Respiratory exam: Present: normal lung sounds bilaterally, other (She does r eport sternal tenderness with palpation. No crepitus). Absent: respiratory distress - Cardiovascular Cardiovascular Exam: Present: regular rate, normal rhythm - GI/Abdominal GI/Abdominal exam: Present: soft, tenderness (Mild epigastric). Absent: distended, guarding, rebound - Extremities Exam Extremities exam: Present: normal capillary refill. Absent: calf tenderness - Back Exam Back exam: Present: paraspinal tenderness (Midthoracic). Absent: CVA tenderness (R), CVA tenderness (L) - Neurological Exam Neurological exam: Present: alert, oriented X3, CN II-XII intact. Absent: normal gait, motor sensory deficit - Psychiatric Psychiatric exam: Present: normal affect, normal mood - Skin Skin exam: Present: warm, dry ED Course Vital Signs 05/28/21 06:16 Temperature 97.9 F Pulse Rate 81 Respiratory 16 Rate Blood Pressure 132/66 Blood Pressure 132/66 [Right] O2 Sat by Pulse 99 Oximetry - Reevaluation(s) Reevaluation #1: 05/28/21 06:55 X-ray and labs have been ordered. EKG was noted. Old records reviewed. Reevaluation #2: 05/28/21 08:31 Labs have been reviewed. X-ray was reviewed. Patient was discharged. DESIREE score - Desiree Score Age > 65: (0) No Aspirin use within the Past 7 Days: (0) No 3 or more CAD Risk Factors: (0) No 2 or more Angina events in past 24 hrs: (0) No Known CAD with more than 50% Stenosis: (0) No Elevated Cardiac Markers: (0) No (Not done) ST Deviation Greater than 0.5mm: (0) No DESIREE Score: 0 ED Medical Decision Making - Lab Data Result diagrams: 05/28/21 06:50 05/28/21 06:50 - EKG Data -: EKG Interpreted by Me - EKG Data 05/28/21 06:55 0644-EKG shows normal sinus rhythm with normal intervals. QRS and QT corrected were normal. There is no ST elevation to suggest STEMI. There is no ST depression suggestive of ischemia. There is no ectopy noted. This was a normal EKG. - Radiology Data Radiology results: report reviewed - Medical Decision Making Patient presents with chest pain of unclear etiology. She certainly does not have evidence of pneumonia or pneumothorax. There is no EKG change and there is no concern for STEMI or ACS. She does not have a widened mediastinum suggestive of aortic dissection. There is no cardiomegaly. Patient did have epigastric pain with this. This could certainly be gastritis or acid reflux or ulcer disease. There was no evidence of acute hepatitis or pancreatitis. She is not jaundiced. There is no right upper quadrant tenderness to suggest biliary di sease. She was treated symptomatically and referred for outpatient evaluation and follow-up. Critical Care Time: No Critical care attestation.: If time is entered above; I have spent that time in minutes in the direct care of this critically ill patient, excluding procedure time. ED Disposition Clinical Impression: Substernal chest pain Disposition: 01 HOME / SELF CARE / HOMELESS Is pt being admited?: No Condition: Stable Instructions: Nonspecific Chest Pain, Adult, Pain Without a Known Cause Additional Instructions: Drink plenty of water. Return for problems. Follow-up with your regular doctor or the referral doctor for recheck. Prescriptions: Ibuprofen [Motrin] 600 mg PO Q8H PRN #20 tablet PRN Reason: Pain Referrals: PRIMARY CAREMD [Primary Care Provider] - 3-5 Days JOHNNIE JACKSON MD [Staff Physician] - 3-5 Days
[2021-05-28 07:20] LABS: Hematocrit 38.4 % (30.3-42.9); Hemoglobin 12.3 gm/dl (10.1-14.3); Mean Corpuscular HGB Conc 32 % (30-34); Mean Corpuscular Volume 87 fl (79-97); Platelet Count 265 K/mm3 (140-440); Red Blood Count 4.41 M/mm3 (3.65-5.03); Red Cell Distribution Width 14.7 % (13.2-15.2)
[2021-05-28 07:43] LABS: Alanine Aminotransferase 13 units/L (7-56); Albumin 4.3 g/dL (3.9-5); Blood Urea Nitrogen 10 mg/dL (7-17); Hemolysis Index 30
[2021-05-28 07:45] LABS: BUN/Creatinine Ratio 25
--- NOTE | 2021-05-28 08:34 | XRay Report ---
CHEST 2 VIEWS, 05/28/2021 INDICATION: Chest pain COMPARISON: Chest radiograph, 10/22/2019 FINDINGS: Support devices: None. Heart: The cardiac silhouette is normal in size. Lungs/pleura: The lungs are clear of focal airspace disease or significant pleural effusion. Additional findings: No significant acute abnormality. IMPRESSION: 1. No evidence of acute cardiopulmonary process. Signer Name: Sarah Lang MD Signed: 05/28/2021 8:30 AM Workstation Name: [id number]
--- NOTE | 2021-05-29 11:49 | Electrocardiograph Report ---
[facility] Test Date: 2021-05-28 Test Time: 06:44:46 Pat Name: KATHERIN MARMOLEJO Department: Room: Gender: F Pot Puncher: KIP : [id number] Requested By: LINDA DAMON Order Number: [id number] Reading MD: Domo Rider Measurements Intervals O'Brien Rate: 80 P: 51 PA: 134 QRS: 22 QRSD: 78 T: 33 QT: 360 QTc: 416 Interpretive Statements Sinus rhythm No previous ECG available for comparison Electronically Signed On 05-29-2021 11:49:33 EST by Domo Rider
== END 2021-05-28 08:39 | disposition home or self-care (01) ==
LOC: ED 05:51
DX: R07.2 Precordial pain (principal); Z79.899 Other long term (current) drug therapy
CPT/HCPCS: 36415; 71046; 80053; 83690; 84703; 85027; 93005; 93010; 99283